=== PATIENT | female | born 1965 | race Two or more races ===

== ENCOUNTER 2017-12-26 06:29 | Inpatient (IN) | payer OTHER ==
[2017-12-13 13:48] LABS: APPEARANCE,URINE TURBID; BASOPHILS % (AUTO) 0.9 % (0.0-2.0); BILIRUBIN, URINE NEGATIVE (NEGATIVE); GLUCOSE, URINE (UA) NEGATIVE (NEGATIVE); HEMATOCRIT 40.7 % (37.0-47.0); HEMOGLOBIN 12.8 G/DL (12.0-16.0); KETONES,URINE 1+ (NEGATIVE); LEUKOCYTE ESTERASE ,URINE 1+ (NEGATIVE); LYMPHOCYTES % (AUTO) 27.1 % (20.0-45.0); MEAN CORPUSCULAR VOLUME 82 FL (80-99); MONOCYTES % (AUTO) 5.6 % (1.0-10.0); NEUTROPHILS % (AUTO) 65.5 % (45.0-75.0); NITRITE,URINE POSITIVE (NEGATIVE); PH,URINE 5 (4.5-8.0); PLATELET COUNT 301 K/UL (150-450); PROTEIN,URINE 1+ (NEGATIVE); RED BLOOD COUNT 4.97 M/UL (4.20-5.40); RED CELL DISTRIBUTION WIDTH 14.1 % (11.6-14.8); UROBILINOGEN,URINE NORMAL MG/DL (0.0-1.0)
[2017-12-13 13:50] LABS: COLOR,URINE YELLOW
[2017-12-13 14:21] LABS: ALANINE AMINOTRANSFERASE 28 U/L (12-78); ALBUMIN 3.6 G/DL (3.4-5.0); ALKALINE PHOSPHATASE 104 U/L (46-116); ANION GAP 8 mmol/L (5-15); ASPARTATE AMINO TRANSFERASE 19 U/L (15-37); BILIRUBIN,TOTAL 0.7 MG/DL (0.2-1.0); BLOOD UREA NITROGEN 13 mg/dL (7-18); CALCIUM 8.5 MG/DL (8.5-10.1); CARBON DIOXIDE 29 MMOL/L (21-32); CHLORIDE 105 MMOL/L (98-107); CREATININE 0.7 MG/DL (0.55-1.30); PHOSPHORUS 3.5 MG/DL (2.5-4.9); POTASSIUM 3.7 MMOL/L (3.5-5.1); SODIUM 142 MMOL/L (136-145)
--- NOTE | 2017-12-13 15:18 | Diagnostic Imaging Report ---
Indication: Dyspnea Comparison: None 2 views of the chest obtained. Findings: Cardiomediastinal silhouette and pulmonary vascularity are within normal limits for age. The diaphragmatic contour is smooth and costophrenic angles are sharp. No pleural effusions are identified. The bones are osteopenic. Impression: No acute disease
[2017-12-26] VITALS (13 sets, daily range): BP systolic 97–124; BP diastolic 49–63
[~2017-12-26] VITALS: Ht 152.4 cm; Wt 90.7 kg
[2017-12-26] MEDS ORDERED: ceFAZolin sod 2 GM in D5W 110 ML IVPB ONE (07:00)
[2017-12-26] MEDS ORDERED: ceFAZolin 2gm/D5W 50ml Premix IV ONE (07:00)
[2017-12-26 07:52] LABS: APPEARANCE,URINE SLIGHTLY CLOUDY; BILIRUBIN, URINE NEGATIVE (NEGATIVE); GLUCOSE, URINE (UA) NEGATIVE (NEGATIVE); KETONES,URINE NEGATIVE (NEGATIVE); LEUKOCYTE ESTERASE ,URINE 1+ (NEGATIVE); NITRITE,URINE NEGATIVE (NEGATIVE); PH,URINE 6 (4.5-8.0); PROTEIN,URINE 1+ (NEGATIVE); UROBILINOGEN,URINE 1 MG/DL (0.0-1.0)
[2017-12-26 07:53] LABS: COLOR,URINE YELLOW
[2017-12-26] MEDS ORDERED: NORCO 5-325 TA1 EACH ORAL (07:54)
[2017-12-26] MEDS ORDERED: IBUPROFEN600 MG ORAL (07:54)
[2017-12-26] MEDS ORDERED: Thrombin 5000 units TOPIC ONE (08:57)
[2017-12-26] MEDS ORDERED: Lacri-Lube Opth Oint 3.5gm ONE (08:57)
[2017-12-26] MEDS ORDERED: Vancomycin 1gm inj IVPB ONE (08:57)
[2017-12-26] MEDS ORDERED: Bupivacaine 0.5% Inj 30 ml vial INJ ONE (08:57)
[2017-12-26] MEDS ORDERED: Thrombin 5000 units spray kit TOPIC ONE (08:58)
[2017-12-26] MEDS ORDERED: Gelfoam Absorbable 1gm powder pkt TOPIC ONE (08:58)
[2017-12-26] MEDS ORDERED: Lidocaine 1% 10mg/ml/EPI 0.01mg/ml 50ml INJ ONE (08:58)
[2017-12-26] MEDS ORDERED: Bacitracin 50000 Units Vial ONE (08:58)
[2017-12-26] MEDS ORDERED: NS Irrig 1000ml ONE (10:30)
[2017-12-26] MEDS ORDERED: fentaNYL 100 mcg/2 mL IV ONE (10:30)
[2017-12-26] MEDS ORDERED: Sterile Water Irrig 1000ml IRRIG ONE (10:30)
[2017-12-26] MEDS ORDERED: Propofol 1,000mg/ 100ml btl IV ONE (10:30)
[2017-12-26] MEDS ORDERED: LR 1000ml ONE (10:30)
[2017-12-26] MEDS ORDERED: Midazolam 2mg/2ml Inj ONE (10:30)
[2017-12-26] MEDS ORDERED: Zemuron 50mg/5ml Inj IV ONE (10:30)
--- NOTE | 2017-12-26 10:31 | Pre-Procedure Note/Attestation ---
Pre-Procedure Note/Attestation Complete Prior to Procedure Procedure Narrative: L45 laminectony and possible coflex Indications for Procedure Pre-Operative Diagnosis: l45 stenosis Attestation I attest that I discussed the nature of the procedure; its benefits; risks and complications; and alternatives (and the risks and benefits of such alternatives ), prior to the procedure, with the patient (or the patient's legal congressional representative). I attest that, if there was a reasonable possibility of needing a blood transfusion, the patient (or the patient's legal congressional representative) was given the [facility] standardized written summary, pursuant to the [place] Blood Safety Act ([place] Health and Safety Code # 1645, as amended). I attest that I re-evaluated the patient just prior to the surgery and that there has been no change in the patient's H&P, except as documented below: NANDO BLISS Dec 26, 2017 10:31
--- NOTE | 2017-12-26 10:54 | Brief Operative Note ---
Immediate Post Operative Note Operative Note Pre-op Diagnosis: l45 stenosis Procedure: l45 LMINECTOMY AND COFLEX Post-op Diagnosis: same as pre-op Findings: consistent w/pre-op dx studies Surgeon: lissett Ladder Operator: torito pacheco Anesthesiologist: go Anesthesia: general Specimen: yes - lamina Complications: none Condition: stable Fluids: 2800 Estimated Blood Loss: minimal Drains: none Implant(s) used?: Yes - NANDO Campos Dec 26, 2017 10:54
[2017-12-26] MEDS ORDERED: Norco 5mg/325mg tab ORAL PRN (11:00)
[2017-12-26] MEDS ORDERED: HYDROmorphone 1mg/ml Carpuject SUBQ PRN (11:00)
[2017-12-26] MEDS ORDERED: Milk of Magnesia 30ml Ud ORAL PRN (11:00)
[2017-12-26] MEDS ORDERED: HYDROcodone/Acetamin 7.5/325 tab ORAL PRN ×2 (11:00)
[2017-12-26] MEDS ORDERED: LORazepam Inj 2mg/ml 1ml IV PRN (11:30)
[2017-12-26] MEDS ORDERED: DiphenhydrAMINE 50mg/ml Inj IVP PRN (11:30)
--- NOTE | 2017-12-26 11:30 | Anethesia Preoperative Eval ---
Anesthesia Pre-op PMH/ROS General Date of Evaluation: Dec 26, 2017 Time of Evaluation: 09:52 Anesthesiologist: Inder ASA Score: ASA 2 Mallampati Score Class I : Soft palate, uvula, fauces, pillars visible Class II: Soft palate, uvula, fauces visible Class III: Soft palate, base of uvula visible Class IV: Only hard plate visible Mallampati Classification: Class II Surgeon: Shemar Diagnosis: Spinal stenosis Surgical Procedure: laminectomy, facetectomy, insertion of Coflex device Family History: no anesthesia problems Allergies: Coded Allergies: No Known Allergies (Unverified , 12/25/17) Medications: see eMAR Past Medical History Cardiovascular: Denies: HTN, CAD, OR, valve dz, arrhythmia, other Pulmonary: Denies: asthma, COPD, HONEY, other Gastrointestinal/Genitourinary: Denies: GERD, CRI, ESRD, other Neurologic/Psychiatric: Denies: dementia, CVA, depression/anxiety, TIA, other Endocrine: Denies: DM, hypothyroidism, steroids, other HEENT: Denies: cataract (L), cataract (R), glaucoma, [place] (L), [place] (R), other Hematology/Immune: Denies: anemia, DVT, bleeding disorder, other Musculoskeletal/Integumentary: Denies: OA, RA, DJD, DDD, edema, other Other: obesity PMH Narrative: Obesity PSxH Narrative: C/S Anesthesia Pre-op Phys. Exam Physician Exam Last Vital Signs Date Time Temp Pulse Resp B/P (MAP) Pulse Ox O2 Delivery O2 Flow Rate FiO2 12/26/17 07:57 97.6 70 18 106/49 96 Room Air Constitutional: NAD Neurologic: CN 2-12 intact Cardiovascular: RRR, no M/R/G Respiratory: CTA Gastrointestinal: S/NT/ND Airway Exam Mallampati Score: Class II MO: full ROM: full Teeth: intact Anesthesia Pre-op A/P Labs WNL Urine Test Test 12/26/17 06:52 Urine HCG, Qualitative Negative Studies Pre-op Studies: EKG - NSR, CXR - NAD Risk Assessment & Plan Assessment: Moderately obese female for lumbar lami, facetectomy and Coflex device Plan: GETA, SedLine Status Change Before Surgery: No Pre-Antibiotics Drug: Ancef Given Within 1 Hr of Incision: Yes Time Given: 10:50 ERNESTO VAZQUEZ M.D. Dec 26, 2017 11:30
--- NOTE | 2017-12-26 11:31 | Immediate Post-Op Evaluation ---
Immediate Post-Op Evalulation Immediate Post-Op Evalulation Procedure: Lumbar lami, facetectomy, Coflex device Date of Evaluation: Dec 26, 2017 Time of Evaluation: 12:55 IV Fluids: 1900 Estimated Blood Loss: 70 Urinary Output: 750 Blood Pressure Systolic: 100 Blood Pressure Diastolic: 53 Pulse Rate: 84 Respiratory Rate: 12 O2 Sat by Pulse Oximetry: 100 Temperature (Fahrenheit): 99.8 Pain Score (1-10): 0 Nausea: No Vomiting: No Complications No complication Patient Status: awake, patent, extubated, none Hydration Status: adequate Drug: Ancef Given Within 1 Hr of Incision: Yes Time Given: 10:20 ERNESTO VAZQUEZ M.D. Dec 26, 2017 11:31
[2017-12-26] MEDS: Hydromorphone 0.5mg/0.5ml inj IVP PRN ×2 (13:15→13:55)
[2017-12-26] MEDS ORDERED: Meperidine 50mg/ml Inj(FOR RIGORS ONLY) IVP ONE (13:15)
[2017-12-26] MEDS ORDERED: LR 1000ml 1,000 ML IV SCH (13:15)
[2017-12-26] MEDS ORDERED: LR 1000ml 1,000 ML IVLG SCH (14:15)
[2017-12-26] MEDS: D5 1/2NS 1,000 ML IV SCH (15:29)
--- NOTE | 2017-12-26 16:26 | Diagnostic Imaging Report ---
Indication: Back pain, intraoperative Technique: Intraoperative imaging Comparison: none Findings: Intraoperative imaging demonstrates surgical tool posterior to but is presumably the superior endplate of L5. Subsequent images document placement of a spacer device between the L4 and L5 spinous processes Impression: Intraoperative imaging, as described
[2017-12-26] MEDS: ceFAZolin sod 1 GM in NS 55 ML IV SCH (17:01)
[2017-12-26] MEDS: Docusate 100mg cap ORAL SCH (17:06)
[2017-12-26] MEDS ORDERED: Hydromorphone 0.5mg/0.5ml inj IVP PRN (18:45)
[2017-12-26] MEDS ORDERED: TransDerm Scop 1mg/72HR Patch TDERMAL ONE (19:30)
[2017-12-27 00:59] VITALS: BP 109/58
[2017-12-27] MEDS: D5 1/2NS 1,000 ML IV SCH ×3 (02:59→21:47)
[2017-12-27] MEDS: ceFAZolin sod 1 GM in NS 55 ML IV SCH ×2 (02:59→09:10)
[2017-12-27 04:40] VITALS: BP 92/53
[2017-12-27 08:00] VITALS: BP 91/38
[2017-12-27] MEDS ORDERED: TransDerm Scop 1mg/72HR Patch TDERMAL ONE (08:15)
--- NOTE | 2017-12-27 09:00 | Orthopedic Spine Progress Note ---
Ortho Spine - Progress Note Subjective Symptoms: c/o post-op back pain, improved Objective Vital Signs: Last 24 Hour Vital Signs Date Time Temp Pulse Resp B/P (MAP) Pulse Ox O2 Delivery O2 Flow Rate FiO2 12/27/17 08:00 97.7 73 17 91/38 98 12/27/17 04:40 98.4 71 20 92/53 98 12/27/17 00:59 98.1 64 18 109/58 100 12/26/17 20:00 98.2 78 20 113/59 100 12/26/17 16:00 97.2 70 18 119/59 100 12/26/17 15:00 98.2 74 18 124/60 100 Nasal Cannula 3.0 12/26/17 14:18 98.6 70 20 122/51 100 Nasal Cannula 3.0 12/26/17 14:11 68 20 117/63 100 Nasal Cannula 3.0 12/26/17 13:55 99.8 12/26/17 13:55 75 20 117/63 100 Nasal Cannula 3.0 12/26/17 13:28 78 20 113/57 100 Simple Mask 8.0 12/26/17 13:15 78 20 111/58 100 Simple Mask 8.0 12/26/17 13:00 78 20 112/53 100 Simple Mask 8.0 12/26/17 12:55 78 20 112/53 100 Simple Mask 8.0 12/26/17 12:50 81 20 97/49 100 Simple Mask 8.0 12/26/17 12:48 84 12 100 12/26/17 12:45 99.8 83 20 100/53 100 Simple Mask 8.0 I&O: Intake and Output 12/26/17 12/27/17 19:00 07:00 Intake Total 3250 ml Output Total 1320 ml 2225 ml Balance 1930 ml -2225 ml Intake Oral 250 ml IV Total 3000 ml Output Urine Total 1200 ml 2225 ml Emesis 50 ml Estimated Blood Loss 70 ml # Voids 1 2 Assessment Procedure Performed: l45 LMINECTOMY AND COFLEX Plan Plan: PT, pain management, discharge plan NANDO BLISS Dec 27, 2017 09:00
--- NOTE | 2017-12-27 09:08 | 48 Hour Post Anesthesia Eval ---
Post Anesthesia Evaluation Procedure: Lumbar lami, facetectomy, Coflex device Date of Evaluation: Dec 27, 2017 Time of Evaluation: 06:26 Blood Pressure Systolic: 91 0: 38 Pulse Rate: 73 Respiratory Rate: 17 Temperature (Fahrenheit): 97.7 O2 Sat by Pulse Oximetry: 98 Airway: patent Nausea: No Vomiting: No Pain Intensity: 2 Hydration Status: adequate Cardiopulmonary Status: Stable Mental Status/LOC: patient returned to baseline Follow-up Care/Observations: 0 Post-Anesthesia Complications: 0 Follow-up care needed: N/A Josse Aggarwal MD Dec 27, 2017 09:08
[2017-12-27] MEDS: Docusate 100mg cap ORAL SCH ×2 (09:10→17:52)
[2017-12-27] MEDS: HYDROcodone/Acetamin 10/325 tab ORAL PRN ×2 (10:36→21:47)
[2017-12-27 12:00] VITALS: BP 116/50
[2017-12-27 16:00] VITALS: BP 103/41
[2017-12-27 20:00] VITALS: BP 103/59
--- NOTE | 2017-12-27 22:45 | Operative Note - Dictated ---
DATE OF OPERATION: 12/26/2017 SURGEON: Tiago Staton M.D. MANAGER ORACLE: Orlin Chamorro PA-C. ANESTHESIOLOGIST: Johann Loving M.D. ANESTHESIA TYPE: General endotracheal anesthesia. PREOPERATIVE DIAGNOSES: Spinal stenosis L4-L5 and grade 1 spondylolisthesis. POSTOPERATIVE DIAGNOSES: Spinal stenosis L4-L5 and grade 1 spondylolisthesis. PROCEDURES: 1. Wide and radical laminectomy and bilateral hemilaminotomies at L4 and superior portion and one-half of L5. 2. Placement of Coflex interbody device/instrumentation. 3. Use of operating microscope. 4. Use of fluoroscopy. 5. Neurodiagnostic monitoring. ESTIMATED BLOOD LOSS: Minimal. COMPLICATIONS: None. FLUIDS: To any 800 mL. INDICATIONS: The patient is a very pleasant woman with mechanical back pain as well as spondylolisthesis and stenotic findings at L4-L5 level. Conservative care had failed. Surgical intervention was recommended. She elected to proceed with surgical decompression. She elected not to have a fusion, but rather preferred a Coflex device. She elected to proceed after risk note was discussed. RISK NOTE: The patient was explained in detail the risks and benefits of surgery to include, but not be limited to those of bleeding, infection, damage to nerves, vessels, tendons, anesthetic risk, allergic reaction, aspiration, and possibly . Potential for instability and need for additional surgery was discussed. She elected to proceed. OPERATIVE PROCEDURE: The patient was taken to the operating suite after general endotracheal anesthesia was obtained. Sin catheter was placed. She was turned prone onto a radiolucent table. All bony prominences were well padded. The back was prepped and draped in usual sterile fashion. Under fluoroscopic guidance, the L4-L5 level was identified. The skin was infiltrated with Marcaine with epinephrine. The bilateral subperiosteal dissection was carried out at L4 through L5. At this point, the left side was first visualized under high-power microscope. Hemilaminotomy was performed of the inferior portion of L4 and superior one-third of L5. This was performed using standard technique using a high-speed drill, curettes, Kerrison punches, as well as pituitary. The foraminotomy was extended and one-half of the facet joint was resected on the left side. This procedure was then identically reproduced on the right side as well. Copious irrigation was performed. Once satisfied with the decompression, it was elected to perform a Coflex procedure. The interspinous ligament was resected on block. The 8 mm trial was chosen and noted to be in good approximation of the interbody space. An 8 mm Coflex device was therefore deployed and inserted between the spinous processes and under fluoroscopic guidance was noted to be in good position. The Coflex was crimped down and fully secured. Copious irrigation was performed. Fascia was repaired using #1 Vicryl, subcutaneous closure using 2-0 Vicryl, and Dermabond and sterile dressing was applied. At the time of this dictation, the patient was awaiting extubation. Sponge and needle counts were correct. [facility] Solange Staton DR: IBRAHIMA JOB#: [id number] CC:
[2017-12-28] VITALS: BP 96/43
[2017-12-28 04:00] VITALS: BP 94/44
--- NOTE | 2017-12-28 04:15 | Consultation ---
DATE OF CONSULTATION: 12/26/2017 CONSULTING PHYSICIAN: Froy Evangelista M.D. REFERRING PHYSICIAN: Tiago Staton M.D. REASON FOR CONSULTATION: Acute pain consult. HISTORY OF PRESENT ILLNESS: Dear Dr. Tiago Staton: Thank you kindly for consulting me to evaluate and render an opinion as to how to proceed in the management of the patient's acute postoperative lumbar spine pain and severe postoperative nausea and vomiting after lumbar spine surgery with instrumentation today. The patient is a 52-year-old obese woman, who injured her lumbar spine after a work-related injury [id number] years ago. She failed multiple lumbar epidural steroid injections. She has recently been prescribed extended release OxyContin and baclofen preoperatively to help with her escalating back pain. After today's lumbar spine surgery, complaints of significant discomfort. She also has a history of severe postoperative nausea and vomiting after previous surgeries. You consulted me to help manage this patient's medications postoperatively in order to help expedite her hospital discharge. At this late evening hour after today's surgery, there were no other pain management physicians available in this urgent setting to see the patient. It was after office hours and I was unable to contact the [facility] bullet swaging machine adjuster for emergent authorization for this pain management consultation. On the surgeon's request, I went ahead and saw the patient for consultation. I performed detailed history and physical examination. I spent over 75 minutes in consultation with an additional 30 minutes in medical record review. Multiple records were reviewed from today's date of surgery at [facility] including multiple reports from the surgery suite, the nursing and pharmacy departments. I reviewed records from the surgeon Dr. Staton, including postoperative spine surgical orders, postoperative operative report, I reviewed records from intraoperative anesthesiologist including anesthesia record, pre and post anesthesia evaluation record and medications ordered by Dr. Loving. I reviewed consent for surgical treatment, consent for anesthesia, consent for blood products, medication administration record, medication reconciliation order form, invasive procedure/surgical implant log, preoperative nurse implant care, guidelines of prophylactic antibiotics, guidelines for DVT prophylaxis. I reviewed preoperative history and physical by Dr. Arnold, 12/13/2017 along with diagnostic testing including laboratory studies, chest x-ray, and 12-lead EKG. PAST MEDICAL HISTORY: 1. Acute postoperative lumbar spine pain, status post lumbar spine instrumentation surgery by Dr. Tiago StatonNovember 2017. 2. Work-related injury. 3. Morbid obesity. 4. History of severe postoperative nausea and vomiting. MEDICATIONS AT HOME: Mallory, OxyContin extended release 20 mg tablets, baclofen dose unclear, and ibuprofen 600 mg. ALLERGIES: No known drug allergies. SOCIAL HISTORY: The patient lives at home with her . PAST SURGICAL HISTORY: section x3. Tubal ligation. Right shoulder surgery. REVIEW OF SYSTEMS: Per Dr. Darrel Arnold. FAMILY HISTORY: Noncontributory. PHYSICAL EXAMINATION: VITAL SIGNS: Age 52, height 5 feet 0, weight 205 pounds, body mass index 39. Vital signs; afebrile, pulse 70, respirations 18, blood pressure 119/69, and oxygen saturation 100% on supplemental oxygen. HEENT: Normocephalic and atraumatic. Extraocular muscles intact. Pupils are equal, round, and reactive to light and accommodative. GENITOURINARY: Deferred. CHEST: Barrel chested. Bibasilar crackles. and postoperative atelectasis and preoperative obesity. HEART: Regular rate and rhythm. ABDOMEN: Soft and obese. Positive bowel sounds. MUSCULOSKELETAL: Lumbar spine with mild paraspinal muscle spasms noted. Pain with log rolling. Lumbar spine dressing appears clean and dry. Straight leg raising deferred to the surgeon. NEUROLOGIC: Detailed neurologic exam per Dr. Staton. EXTREMITIES: Moving all extremities x4 with 5/5 dorsiflexion, 5/5 plantar flexion in bilateral lower extremities. Sin catheter in place. LABORATORY AND DIAGNOSTIC DATA: Diagnostic testing 12/13/2017 shows sodium 142, potassium 3.7, chloride 105, bicarbonate 29, BUN 13, creatinine 0.7, glucose 90, calcium 8.5, phosphorus 3.5, magnesium 2.0, total bilirubin 0.7. AST 19, ALT 28. Total protein 7.3. Albumin 3.6. Alkaline phosphatase 104. White count 9, hematocrit 41, and platelets 300,000. INR 1.0 and PTT 29. Urinalysis, positive for nitrite and leukocyte esterase. A 12-lead EKG shows heart rate 60. Normal sinus rhythm. Preoperative chest x-ray 12/13/2017 shows no acute cardiopulmonary disease. IMPRESSION: 1. Acute postoperative lumbar spine pain, status post lumbar spine instrumentation surgery by Dr. Tiago Staton, November 2017. 2. Work-related injury. 3. Morbid obesity. 4. History of severe postoperative nausea and vomiting. TREATMENT AND RECOMMENDATIONS: In this urgent setting, after the patient's instrumentation lumbar spine surgery, I made the following recommendations to help avoid postoperative nausea in this patient with a history of severe postoperative nausea and vomiting. The patient states that after her shoulder surgery, she was vomiting for over 10 days. The patient denies any glaucoma symptoms. My first treatment recommendation will be to prevent any such nausea occurrences. The patient denied glaucoma symptoms, so I have ordered a scopolamine patch 1.5 mg. I have also ordered Zofran 4 mg intravenously every 4 hours p.r.n. as a rescue first-line agent with a second-line agent of Phenergan 12.5 mg intramuscularly every 8 hours as a second-line agent. I have simplified the patient's analgesic regimen in this obese woman to help reduce the risk for potentiation of respiratory depression. The patient states that she has been on OxyContin extended release 20 mg tablets several weeks ago. With her obesity, I am concerned for respiratory compromise. I will start with her intravenous dose of Dilaudid 0.5 mg intravenously every two hours p.r.n. for severe breakthrough pain. I would titrating oral hydrocodone Mallory 10/325 one tablet every three hours p.r.n. for more moderate pain. I have added Fioricet tablets one tablet orally every 8 hours p.r.n. for headache symptoms and I will add a p.r.n. dose of baclofen 10 mg every 8 hours p.r.n. for muscle spasm complaints. The patient seems to think she has tolerated baclofen in the past. Froy Evangelista M.D. DR: BRANT JOB#: [id number] CC:
[2017-12-28 08:00] VITALS: BP 100/57
--- NOTE | 2017-12-28 10:04 | Orthopedic Spine Progress Note ---
Ortho Spine - Progress Note Subjective Symptoms: c/o post-op back pain, improved - as compared to pre-op Objective Vital Signs: Last 24 Hour Vital Signs Date Time Temp Pulse Resp B/P (MAP) Pulse Ox O2 Delivery O2 Flow Rate FiO2 12/28/17 04:00 98.9 61 18 94/44 98 12/28/17 00:00 98.1 68 18 96/43 95 12/27/17 23:05 97.8 12/27/17 20:00 99.6 66 19 103/59 100 12/27/17 16:00 97.8 70 17 103/41 97 12/27/17 12:00 97.0 78 19 116/50 95 I&O: Intake and Output 12/27/17 12/28/17 19:00 07:00 Intake Total 1900 ml 1620 ml Balance 1900 ml 1620 ml Intake Oral 600 ml 420 ml IV Total 1300 ml 1200 ml # Voids 2 3 Wound: clean, intact Drains: none Neuro Status: normal Assessment Procedure Performed: l45 LMINECTOMY AND COFLEX Plan Plan: PT, pain management, discharge to home NANDO BLISS Dec 28, 2017 10:04
[2017-12-28] MEDS: Docusate 100mg cap ORAL SCH (10:25)
[2017-12-28] MEDS: D5 1/2NS 1,000 ML IV SCH (10:26)
[2017-12-28 12:00] VITALS: BP 119/46
[2017-12-28 12:18] LABS: BASOPHILS % (AUTO) 0.9 % (0.0-2.0); EOSINOPHILS % (AUTO) 0.8 % (0.0-3.0); HEMATOCRIT 33.4 % (37.0-47.0); HEMOGLOBIN 10.8 G/DL (12.0-16.0); LYMPHOCYTES % (AUTO) 21.5 % (20.0-45.0); MEAN CORPUSCULAR VOLUME 82 FL (80-99); MONOCYTES % (AUTO) 9.1 % (1.0-10.0); NEUTROPHILS % (AUTO) 67.7 % (45.0-75.0); PLATELET COUNT 205 K/UL (150-450); RED BLOOD COUNT 4.06 M/UL (4.20-5.40); RED CELL DISTRIBUTION WIDTH 13.9 % (11.6-14.8); WHITE BLOOD COUNT 9.3 K/UL (4.8-10.8)
[2017-12-28] MEDS ORDERED: NORCO 10-325 T1 EACH ORAL (15:53)
--- NOTE | 2017-12-28 18:15 | Progress Note ---
DATE: 12/27/2017 ACUTE PAIN MANAGEMENT PHYSICIAN PROGRESS NOTE MEDICATIONS: Medication administration record reviewed. Medications include IV fluids, Colace, and Protonix. P.r.n. medications include Restoril, Tylenol, milk of magnesia, Phenergan, Zofran, Mylanta, [place], Dilaudid, Catapres, Benadryl, Fioricet, and baclofen. LABORATORY STUDIES: No interval laboratory studies. OBJECTIVE: VITAL SIGNS: Shows afebrile, blood pressure 91/38 earlier this morning, currently 115/50, pulse 78, respirations 19, and oxygen saturation 95%. I saw the patient at the bedside, after discussion with the nurse RN, Paul, and the surgeon, Dr. Tiago Staton. Early this morning, the patient was very dizzy and nauseous when ambulating with physical therapy. I did encourage the patient to increase her oral fluid intake better. With application of the scopolamine patch, her nausea symptoms have improved the most part. She did tolerate Jell-O and for her lunch. She has been alternating antiemetics including Zofran primarily. Phenergan remains available as a second-line antiemetic agent. The patient did have a headache, but has not been responding well to Fioricet. Hydrocodone ordered along with the subcutaneous Dilaudid both have been affective. I will continue her current analgesic doses as ordered. I did leave a prescription for 50 tablets of [place] for outpatient usage. The patient will remain on Protonix for GI ulcer prophylaxis and I did encourage sequential compression pneumatic devices for DVT prophylaxis. The patient will be returning to her in [place], [place] at the time of discharge which at this point, seems to point more towards the discharge tomorrow. To be certain, she has no further episodes of orthostatic hypotension, and that her nausea symptoms continue to resolve. Froy Evangelista M.D. DR: BRANT JOB#: [id number] CC:
--- NOTE | 2017-12-29 10:23 | Discharge Summary ---
Discharge Summary Hospital Course Date of Admission Dec 26, 2017 at 06:29 Date of Discharge Dec 28, 2017 at 16:06 Admitting Diagnosis HPI Nuha Hinson is a 52 year old female who was admitted on Dec 26, 2017 at 06: 29 for Lumbar Spine Stenosis Hospital Course [id number] Discharge Discharge Disposition Patient was discharged to Home (01) Discharge Diagnoses: Aubree Hayes NP Dec 29, 2017 10:23
--- NOTE | 2017-12-29 12:55 | Progress Note ---
DATE: 12/28/2017 ACUTE PAIN MANAGEMENT PHYSICIAN PROGRESS NOTE. Medication administration record reviewed. Medications include IV fluids, Colace, Protonix, p.r.n. medications include Restoril, Tylenol, milk of magnesia, Phenergan, Zofran, Mylanta, [place], Dilaudid, Catapres, Benadryl, Fioricet, baclofen. Laboratory studies from this morning are pending. Vital signs shows blood pressure 94/44, oxygen saturation 98% on room air, respirations 18, afebrile, pulse 61. I saw the patient at bedside with the nurse RN, Paul and the surgeon, Dr. Tiago Staton. Over the past 24 hours, the patient still was having a few episodes of orthostatic dizziness. However with increased oral intake of fluids, she has been able to ambulate in and out of bed independently and to the restroom. Surgeon, Dr. Staton visually observed the patient ambulating around the room. EKG showed no signs of dizziness or imbalance. Dr. Staton evaluated the lumbar spine wound at the bedside and was pleased with the appearance of the dressing wound. The patient appears neurologically intact. The patient is alert and oriented x3. The patient has normal vital signs and pain medications for home usage have been arranged. The patient is increasing her appetite and has no nausea symptoms currently. Her preoperative hematocrit was 41 on 12/13/2017. We ordered CBC for this morning to check her hematocrit level to be certain she is not profoundly anemic. If that laboratory study is within normal limits, I agree with the surgeon, Dr. Staton for discharge trial home today. The patient will follow up in the outpatient surgical clinic for surgical followup. The patient has continued to alternate as needed doses of pain medications here in the hospital as listed above with p.r.n. Dilaudid, [place] , and Fioricet. I would continue this current hospital analgesic regimen while the patient remains in the medical facility. Froy Evangelista M.D. DR: Chelly JOB#: [id number] CC:
--- NOTE | 2017-12-29 12:55 | Consultation ---
DATE OF CONSULTATION: 12/26/2017 NOTE: As per physician request the content of this dictation has been merged with . Froy Evangelista M.D. DR: YORDAN JOB#: [id number] CC:
--- NOTE | 2017-12-30 00:30 | Discharge Summary 2 SIG ---
DATE OF ADMISSION: 12/26/2017 DATE OF DISCHARGE: 12/28/2017 [employer]ES SYSTEMS ENGINEER: Froy Evangelista M.D. BRIEF HOSPITAL COURSE: The patient is a 52-year-old female, who injured her lumbar spine after a work-related injury [id number] years ago. She failed multiple lumbar epidural steroid injections. She was admitted on 12/26/2017 and underwent wide radical laminectomy and bilateral hemilaminotomy at L4 and superior portion of one-half of L5. Postoperatively, she was seen by Dr. Evangelista for pain management. She was seen by PT and OT. Urinary catheter was discontinued. She was encouraged ambulation. She was placed on SCDs for DVT prophylaxis and was given Protonix for GI prophylaxis. She had episodes of dizziness and nausea when ambulating with physical therapy. Oral fluid intake was encouraged. She was given scopolamine patch, which improved her symptoms. She was ambulating well and had good pain control. She was eventually discharged home. FINAL DIAGNOSES: Spinal stenosis L4-L5 and grade 1 spondylolisthesis status post wide and radical laminectomy and bilateral hemilaminotomy at L4 and superior portion of one-half of L5. Please refer to operative report. DISCHARGE DISPOSITION: The patient was discharged home. DISCHARGE MEDICATIONS: Continue with p.r.n. pain control. DISCHARGE INSTRUCTIONS: Follow up with the surgeon in a week. Tiago Staton M.D. I have been assigned to dictate discharge summary on this account and I was not involved in the patient's management. Aubree Hayes N.P. DR: CHARLES JOB#: [id number] CC: ENOCH
== END 2017-12-28 16:06 | disposition home or self-care (01) | DRG 520 ==
LOC: SDSOVERFLO 06:29 → 3E 14:19
PROC: 4A11X4G Monitoring of Peripheral Nervous Electrical Activity, Intraoperative, External Approach (ICD-10-PCS; principal; 2017-12-26 10:45)
PROC: 00NY0ZZ Release Lumbar Spinal Cord, Open Approach (ICD-10-PCS; principal; 2017-12-26 10:45)
DX: M48.061 Spinal stenosis, lumbar region without neurogenic claudication (principal); M43.16 Spondylolisthesis, lumbar region; Z68.39 Body mass index [BMI] 39.0-39.9, adult; R42 Dizziness and giddiness; R11.2 Nausea with vomiting, unspecified; R51 Headache
CPT/HCPCS: 36415; 71046; 72020; 76001; 80053; 81001; 81025; 83735; 84100; 85025; 85610; 85730; 86850; 86900; 86901; 87081; 87086; 87181; 94003; 94150; J2250; J2405